=== PATIENT | male | born 1995 | race Caucasian/White ===

== ENCOUNTER 2016-11-19 22:08 | Emergency (ER) | payer MEDICAID ==
[~2016-11-19] VITALS: Ht 193 cm; Wt 102.0 kg
[2016-11-19 23:14] VITALS: BP 133/74
== END 2016-11-19 23:14 | disposition home or self-care (01) ==
LOC: ED 22:08
DX: K04.7 Periapical abscess without sinus (principal); K05.00 Acute gingivitis, plaque induced; R51 Headache; Z79.899 Other long term (current) drug therapy